=== PATIENT | male | born 1955 ===

== ENCOUNTER 2017-01-11 10:56 | Emergency (ER) | payer MEDICAID ==
[2017-01-11 10:57] VITALS: BMI 33.3
--- NOTE | 2017-01-11 11:46 | C.PDOC ---
History Of Present Illness 61 y/o male sent to ED by PMD for repeat INR. INR yesterday 8. Pt denies bleeding or any other complaints. Pt on Coumadin for atrial fibrillation. Chief Complaint (Nursing): Medical Clearance History Per: Patient History/Exam Limitations: no limitations Severity: None Reports Recently: Treated By A Physician Recent travel outside of the [place]: No Past Medical History Reviewed: Historical Data, Nursing Documentation, Vital Signs Vital Signs: Last Vital Signs Temp 98.9 F 01/11/17 12:44 Pulse 79 01/11/17 12:44 Resp 20 01/11/17 12:44 BP 132/88 01/11/17 12:44 Pulse Ox 100 01/11/17 12:44 - Medical History PMH: Anxiety, Arthritis (hands), Atrial Fibrillation (07-23-12), Cardia Arrhythmia, CHF, HTN, Hypercholesterolemia, Kidney Stones, Peripheral Edema (IN THE PAST), Chronic Kidney Disease Surgical History: Appendectomy, Tonsillectomy Denies: Pacemaker - [facility] Procedures INJECT ANTICOAGULANT (07/24/12) VACCINATION NEC (06/08/13) Family History: States: Unknown Family Hx - Social History Hx Tobacco Use: Yes Hx Alcohol Use: No (quit 1997) Hx Substance Use: No (quit 1997 fish, vanesa) Review Of Systems Except As Marked, All Systems Reviewed And Found Negative. Physical Exam - Physical Exam Appears: Non-toxic, No Acute Distress Skin: Warm, Dry, No Rash Head: Atraumatic, Normacephalic Chest: Symmetrical Cardiovascular: Rhythm Irregular (irregularly irregular), No Murmur Respiratory: Normal Breath Sounds, No Rales, No Rhonchi, No Wheezing Gastrointestinal/Abdominal: Normal Exam, Soft, No Tenderness Extremity: No Pedal Edema Extremity: Bilateral: Atraumatic Neurological/Psych: Oriented x3, Normal Speech Medical Decision Making Medical Decision Making: Spoke to Dr. Esteban and reviewed case. Will hold coumadin for 3 days and restart patient at 3mg daily. Will redraw INR in 1 week. Patient understands plan. Disposition - Disposition Referrals: Theo Esteban MD [Staff Provider] - Disposition: HOME/ ROUTINE Disposition Time: 12:20 Condition: GOOD Additional Instructions: Thank you for letting us take care of you today. Your provider was Dr. Pyle. You were treated for abnormal labs. The emergency medical care you received today was directed at your acute symptoms. If you were prescribed any medication, please fill it and take as directed. It may take several days for your symptoms to resolve. Return to the Emergency Department if your symptoms worsen, do not improve, or if you have any other problems. Please contact your doctor or call one of the physicians/clinics you have been referred to that are listed on the Patient Visit Information form that is included in your discharge packet. Bring any paperwork you were given at discharge with you along with any medications you are taking to your follow up visit. Our treatment cannot replace ongoing medical care by a primary care provider (PCP) outside of the emergency department. Thank you for allowing the [facility] team to be part of your care today. STOP TAKING THE COUMADIN TODAY, TOMORR AND SATURDAY. RESTART THE COUMADIN 3MG ON SATURDAY AND FOLLOW UP WITH DR. ESTEBAN ON SATURDAY FOR A REPEAT INR CHECK. Prescriptions: Warfarin [Coumadin] 3 mg PO DAILY #7 tab Instructions: Warfarin (By mouth) - Clinical Impression Clinical Impression: Abnormal laboratory test - Scribe Statement The provider has reviewed the documentation as recorded by the Bryan Jolley Provider Attestation: All medical record entries made by the Bryan were at my direction and personally dictated by me. I have reviewed the chart and agree that the record accurately reflects my personal performance of the history, physical exam, medical decision making, and the department course for this patient. I have also personally directed, reviewed, and agree with the discharge instructions and disposition.
[2017-01-11 11:59] LABS: INR 9.1
[2017-01-11 12:47] VITALS: BP 132/88; PULSE 79; RESP 20; TEMP 98.9; O2SAT 100
== END 2017-01-11 12:44 | disposition home or self-care (01) ==
LOC: C.ER 10:56
DX: R79.1 Abnormal coagulation profile (principal)

== ENCOUNTER 2017-02-08 07:51 | Day surgery (SDC) | payer MEDICAID ==
[2017-02-08] MEDS ORDERED: Lactated Ringer's 500 ML IV ONE (09:20)
[2017-02-08] MEDS ORDERED: Propofol 10 mg/ml Inj (20 ML) ONE ×2 (09:55→10:20)
[2017-02-08 10:40] VITALS: TEMP 97.1
[2017-02-08 11:15] VITALS: O2SAT 97
[2017-02-08 13:12] VITALS: BP 126/99; PULSE 82; RESP 12
== END 2017-02-08 13:05 | disposition home or self-care (01) ==
LOC: C.ENDO 07:51
PROVIDERS: ATTEND Internal Medicine
DX: K29.60 Other gastritis without bleeding (principal); K21.9 Gastro-esophageal reflux disease without esophagitis; R13.14 Dysphagia, pharyngoesophageal phase; Z86.010 Personal history of colon polyps
CPT/HCPCS: 43239; 88305; J2001; J2704; J7120

== ENCOUNTER 2017-05-20 06:55 | Day surgery (SDC) | payer MEDICAID ==
[2017-05-20 07:12] VITALS: BMI 35.5
--- NOTE | 2017-05-20 08:29 | CP.SDSHP ---
Same Day Surgery H & P - History Proposed Procedure: EGD Pre-Op Diagnosis: Erosive esophagitis. Possible Ceron's esophagus - Previous Medical/Surgical History Cardiac: Arrhythmia Endocrine/Metabolic: Obesity Previous Surgical History: egd - Allergies Allergies: Allergies pollen extracts Allergy (Verified 02/08/17 08:18) CONGESTION - Physical Exam General Appearance: nl Vital Signs: Vital Signs 05/20/17 07:15 Temperature 97.8 F Pulse Rate 57 L Respiratory 19 Rate Blood Pressure 116/84 O2 Sat by Pulse 98 Oximetry Mental Status: Alert & Oriented x3 Neuro: WNL Heart: WNL Lungs: WNL GI: WNL - {Optional Preform as Required} Abdomen: WNL - Impression Impression: Esophagitis. R/o ceron's. egd Pt. Evaluated Today:Candidate for Anesthesia & Procedure: Yes - Date & Time Date: 05/20/17 Time: 08:29 Short Stay Discharge - Short Stay Discharge Admitting Diagnosis/Reason for Visit: HX COLONIC POLYPS / CERON'S ESOPHAGUS Disposition: HOME/ ROUTINE
[2017-05-20] MEDS ORDERED: Midazolam 2 MG/2 ML VIAL ONE (08:31)
[2017-05-20] MEDS ORDERED: Propofol 10 mg/ml Inj (20 ML) ONE (08:31)
[2017-05-20] MEDS ORDERED: Simethicone 40 mg/0.6 ml Liquid (30 ml) ONE ×2 (08:42)
[2017-05-20] MEDS ORDERED: Lactated Ringer's 500 ML IV SCH (09:15)
[2017-05-20 09:47] VITALS: PULSE 71; RESP 20; O2SAT 99
[2017-05-20 10:26] VITALS: BP 112/83; TEMP 97
== END 2017-05-20 12:55 | disposition home or self-care (01) ==
LOC: C.ENDO 06:55
PROVIDERS: ATTEND Internal Medicine
DX: K21.0 Gastro-esophageal reflux disease with esophagitis (principal); K44.9 Diaphragmatic hernia without obstruction or gangrene; Z86.010 Personal history of colon polyps; K22.10 Ulcer of esophagus without bleeding; K29.70 Gastritis, unspecified, without bleeding
CPT/HCPCS: 43239; 88305; 88312; 88313; J2250; J2704; J7120

== ENCOUNTER 2017-07-10 16:19 | Emergency (ER) | payer MEDICAID ==
[2017-07-10 16:19] VITALS: BMI 34.6
--- NOTE | 2017-07-10 17:05 | C.PDOC ---
History Of Present Illness 62 y/o male, with past medical history of HTN, high cholesterol, Afib on blood thinner, reports he was undergoing medical clearance this morning for upcoming scheduled upper endoscopy, and his blood pressure was found to be elevated. Patient also reports 2 episodes of mild mid-sternal chest pain earlier today, each lasting a few seconds, non-radiating. Patient notes first episode was earlier this morning and second episode was en route to ER. Patient c/o increasing SOB on exertion, which is new for him. He otherwise denies leg swelling, or other symptoms. Time Seen by Provider: 07/10/17 16:50 Chief Complaint (Nursing): Shortness Of Breath History Per: Patient History/Exam Limitations: no limitations Onset/Duration Of Symptoms: Days Current Symptoms Are (Timing): Still Present Associated Symptoms: Chest Pain. denies: Fever, Chills, Bloody Cough, Productive Cough, Ankle/Leg Swelling, Dizziness, Light-headedness, Anxiety Recent travel outside of the [place]: No Past Medical History Reviewed: Historical Data, Nursing Documentation, Vital Signs Vital Signs: Last Vital Signs Temp 98.0 F 07/10/17 18:32 Pulse 102 H 07/10/17 18:32 Resp 20 07/10/17 18:32 BP 126/85 07/10/17 18:32 Pulse Ox 96 07/10/17 18:32 - Medical History PMH: Anxiety, Arthritis (hands), Atrial Fibrillation, Cardia Arrhythmia, CHF, HTN, Hypercholesterolemia, Kidney Stones, Peripheral Edema (IN THE PAST), Chronic Kidney Disease Surgical History: Appendectomy, Tonsillectomy - [facility] Procedures INJECT ANTICOAGULANT (07/24/12) VACCINATION NEC (06/08/13) Family History: States: Unknown Family Hx - Social History Hx Tobacco Use: Yes Hx Alcohol Use: Yes (quit 1997) Hx Substance Use: Yes (quit 1997 coke, pot) - Immunization History Hx Tetanus Toxoid Vaccination: No Hx Influenza Vaccination: Yes Hx Pneumococcal Vaccination: No Review Of Systems Except As Marked, All Systems Reviewed And Found Negative. Constitutional: Negative for: Fever, Chills Cardiovascular: Positive for: Chest Pain. Negative for: Palpitations Respiratory: Negative for: Cough, Shortness of Breath, Wheezing Gastrointestinal: Negative for: Nausea, Vomiting, Abdominal Pain Skin: Negative for: Rash Neurological: Negative for: Headache, Dizziness Physical Exam - Physical Exam Appears: Non-toxic, No Acute Distress Skin: Normal Color, Warm, Dry Head: Atraumatic, Normacephalic Oral Mucosa: Moist Chest: Symmetrical Cardiovascular: Rhythm Regular, No Murmur Respiratory: Normal Breath Sounds, No Rales, No Rhonchi, No Wheezing Gastrointestinal/Abdominal: Soft, No Tenderness, No Guarding, No Rebound Back: Normal Inspection Extremity: Normal ROM, Capillary Refill (< 2 sec.) Neurological/Psych: Oriented x3, Normal Speech, Normal Cognition ED Course And Treatment - Laboratory Results Result Diagrams: 07/10/17 17:06 07/10/17 17:06 Lab Interpretation: Abnormal (INR 4.6 (Patient states that he was advised to not take his Coumadin tonight and has an appointment with his floral designer in the morning.)) ECG: Interpreted By Me ECG Rhythm: Atrial Fibrillation ECG Interpretation: No Acute Changes O2 Sat by Pulse Oximetry: 94 (RA) Pulse Ox Interpretation: Normal - Radiology CXR: Interpreted by Me CXR Interpretation: Yes: No Acute Disease Reevaluation Time: 19:29 Reassessment Condition: Improved (Heart rate and BP both decreased.. Patient is asymptomatic.) Disposition Counseled Patient/Family Regarding: Studies Performed, Diagnosis, Need For Followup - Disposition Referrals: Jorje Alarcon [Staff Provider] - Disposition: HOME/ ROUTINE Disposition Time: 19:30 Condition: IMPROVED Additional Instructions: Do not take your Warfarin tonight. Keep your appointment with your Continuous Improvement Manager in the morning. Instructions: Hypertension (ED) Forms: [facility] ([employer]) - Clinical Impression Clinical Impression: Benign hypertension, Atrial fibrillation, Congestive heart failure, CHF NYHA class III (symptoms with mildly strenuous activities) - Scribe Statement The provider has reviewed the documentation as recorded by the Scribe SM All medical record entries made by the Scribe were at my direction and personally dictated by me. I have reviewed the chart and agree that the record accurately reflects my personal performance of the history, physical exam, medical decision making, and the department course for this patient. I have also personally directed, reviewed, and agree with the discharge instructions and disposition.
[2017-07-10 17:14] LABS: BASO % 0.5 % (0.0-2.0); EOS # 0.1 K/uL (0.0-0.7); EOS % 1.9 % (0.0-4.0); HEMATOCRIT 42.4 % (35.0-51.0); MEAN CELL VOLUME 87.5 fL (80.0-94.0); MEAN CORPUSCULAR HEMOGLOBIN 28.8 pg (27.0-31.0); MEAN CORPUSCULAR HGB CONC 32.9 g/dL (33.0-37.0); MEAN PLATELET VOLUME 8.6 fL (7.2-11.7); MONO # 0.5 K/uL (0.0-0.8); RED CELL DISTRIBUTION WIDTH 14.2 % (11.5-14.5)
[2017-07-10 17:22] LABS: INR 4.6
[2017-07-10 17:29] LABS: ALB/GLOB RATIO 1.4 (1.0-2.1); ALKALINE PHOSPHATASE 70 U/L (38-126); ALT/SGPT 45 U/L (21-72); AST/SGOT 34 U/L (17-59); BILIRUBIN,TOTAL 0.6 mg/dL (0.2-1.3); BLOOD UREA NITROGEN 24 mg/dL (9-20); CALCIUM 8.6 mg/dl (8.6-10.4); CARBON DIOXIDE 24 mmol/L (22-30); CHLORIDE 102 mmol/L (98-107); GFR AFRICAN-AMERICAN > 60; GLUCOSE,RANDOM 101 mg/dL (75-110); POTASSIUM 4.1 mmol/L (3.6-5.2); SODIUM 137 mmol/L (132-148); TOTAL PROTEIN 7.5 g/dL (6.3-8.3)
[2017-07-10 18:04] LABS: RBC URINE 10 /hpf (0-3); URINE BACTERIA RARE (<OCC); URINE BILIRUBIN NEGATIVE (NEGATIVE); URINE COLOR Yellow (YELLOW); URINE GLUCOSE (UA) NORMAL (Normal); URINE KETONE NEGATIVE (NEGATIVE); URINE LEUKOCYTE ESTERASE NEG Leu/uL (Negative); URINE PROTEIN NEGATIVE (NEGATIVE); URINE UROBILINOGEN NORMAL mg/dL (0.2-1.0); WBC URINE 2 /hpf (0-5)
[2017-07-10 18:06] LABS: URINE BLOOD 2+ (NEGATIVE)
--- NOTE | 2017-07-10 18:32 | RAD ---
HISTORY: chest pain COMPARISON: Chest x-ray performed 07/10/17 at 836 hours TECHNIQUE: Chest, one view. FINDINGS: LUNGS: No focal consolidation. Please note that chest x-ray has limited sensitivity for the detection of pulmonary masses. PLEURA: No significant pleural effusion identified. No definite pneumothorax . CARDIOVASCULAR: Heart size appears within normal limits. OSSEOUS STRUCTURES: Degenerative changes. VISUALIZED UPPER ABDOMEN: Unremarkable. OTHER FINDINGS: None. IMPRESSION: No focal consolidation, significant pleural effusion, or definite pneumothorax identified.
[2017-07-10 19:50] VITALS: BP 137/77; PULSE 98; RESP 18; TEMP 97.6; O2SAT 97
--- NOTE | 2017-07-15 03:08 | CARD ---
APPROVED REPORT EKG Measurement Heart [id number] <Conclusion> Atrial fibrillation with rapid ventricular response Septal infarct, age undetermined Abnormal ECG
== END 2017-07-10 19:55 | disposition home or self-care (01) ==
LOC: C.ER 16:19
DX: I11.0 Hypertensive heart disease with heart failure (principal); I50.9 Heart failure, unspecified; I48.91 Unspecified atrial fibrillation; Z79.01 Long term (current) use of anticoagulants; Z72.0 Tobacco use

== ENCOUNTER 2017-07-22 06:06 | Day surgery (SDC) | payer MEDICAID ==
[2017-07-15 13:30] VITALS: BMI 33.6
--- NOTE | 2017-07-22 07:56 | CP.SDSHP ---
Same Day Surgery H & P - History Proposed Procedure: egd eus emr Pre-Op Diagnosis: nodular barretts esophagus - Allergies Allergies: Allergies No Known Allergies Allergy (Verified 07/10/17 16:34) - Physical Exam General Appearance: nl Vital Signs: Vital Signs 07/22/17 07:27 Temperature 97.8 F Pulse Rate 88 Respiratory 18 Rate Blood Pressure 134/94 H O2 Sat by Pulse 97 Oximetry Mental Status: Alert & Oriented x3 Neuro: WNL Heart: WNL Lungs: WNL GI: WNL - {Optional Preform as Required} Abdomen: WNL - Impression Impression: nodular barretts esophagus egd eus emr Pt. Evaluated Today:Candidate for Anesthesia & Procedure: Yes - Date & Time Date: 07/22/17 Time: 07:56 Short Stay Discharge - Short Stay Discharge Admitting Diagnosis/Reason for Visit: EDGE'S ESOPHAGUS WITHOUT DYSPLASIA Disposition: HOME/ ROUTINE
[2017-07-22 07:59] LABS: INR 1.4
[2017-07-22] MEDS ORDERED: Lactated Ringer's 1,000 ML IV ONE (09:45)
[2017-07-22] MEDS ORDERED: Midazolam 2 MG/2 ML VIAL ONE (09:49)
[2017-07-22] MEDS ORDERED: Etomidate 20 mg/10ml Inj IV ONE (09:49)
[2017-07-22] MEDS ORDERED: Succinylcholine Chloride 20 mg/ml Syr (5 ml) IV ONE (10:03)
[2017-07-22] MEDS ORDERED: Rocuronium 10 mg/ml (5 ml) ONE (10:04)
[2017-07-22] MEDS ORDERED: Esmolol 100 mg/10ml Inj IV ONE (11:05)
[2017-07-22] MEDS ORDERED: Labetalol 25mg/5ml Syringe ONE (11:05)
[2017-07-22] MEDS ORDERED: Phenylephrine 10 mg/ml Inj ONE (11:05)
[2017-07-22 11:52] VITALS: RESP 22; TEMP 98.5
[2017-07-22 15:51] VITALS: BP 106/83; PULSE 105; O2SAT 96
== END 2017-07-22 15:46 | disposition home or self-care (01) ==
LOC: C.ENDO 06:06
PROVIDERS: ATTEND Internal Medicine
DX: K22.70 Barrett's esophagus without dysplasia (principal); K31.9 Disease of stomach and duodenum, unspecified; K22.10 Ulcer of esophagus without bleeding; K44.9 Diaphragmatic hernia without obstruction or gangrene
CPT/HCPCS: 36415; 43259; 85610; 85730; J2001; J2250; J2370; J3010; J7120